=== PATIENT | female | born 1995 | race Two or more races ===

== ENCOUNTER 2017-04-17 08:11 | Outpatient (CLI) | payer OTHER ==
[~2017-04-17] VITALS: Ht 170.2 cm; Wt 73.6 kg
[2017-04-17 08:27] VITALS: BP 113/65
[2017-04-17] MEDS ORDERED: PREN1TAB69 PO (08:38)
== END 2017-04-17 09:33 | disposition home or self-care (01) ==
LOC: LDOP 08:11
PROVIDERS: ATTEND Obstetrics & Gynecology
DX: O42.92 Full-term premature rupture of membranes, unspecified as to length of time between rupture and onset of labor (principal); Z3A.00 Weeks of gestation of pregnancy not specified
CPT/HCPCS: 59025; 99201; G0463

== ENCOUNTER 2017-04-17 12:51 | Inpatient (IN) | payer OTHER ==
[~2017-04-17] VITALS: Ht 170.2 cm; Wt 73.6 kg
[~2017-04-17 12:51] MED LIST: PREN1TAB69 PO
[2017-04-17] MEDS ORDERED: OXYTOCIN 30U/ 0.9% NaCL 500ML 500 ML IV ONE (15:31)
[2017-04-17] MEDS ORDERED: D5%-LACTATED RINGERS 1,000 ML IV SCH (15:31)
[2017-04-17] MEDS ORDERED: FENTANYL PF 100 MCG/2ML IV PRN (16:00)
[2017-04-17] MEDS ORDERED: ONDANSETRON 2MG/ML, 2ML IVPush PRN (16:00)
[2017-04-17] MEDS ORDERED: FENTANYL PF 100 MCG/2ML IVPush PRN (16:00)
[2017-04-17] MEDS ORDERED: NEWBORN KIT ONE (16:05)
[2017-04-17] MEDS ORDERED: LIDOCAINE 1%, 20ML ONE (16:05)
[2017-04-17] MEDS ORDERED: OXYTOCIN 30U/ 0.9% NaCL 500ML 500 ML ONE ×2 (16:06→23:29)
[2017-04-17] MEDS ORDERED: MISOPROSTOL 200 MCG TABLET ONE (16:06)
[2017-04-17] MEDS ORDERED: FENTANYL PF 100 MCG/2ML ONE ×3 (16:06→23:11)
[2017-04-17 16:07] LABS: BASOPHILS # (AUTO) 0.05 x10^3/uL (0-0.1); BASOPHILS % (AUTO) 0 % (0-1); EOSINOPHILS # (AUTO) 0.02 x10^3/uL (0-0.4); EOSINOPHILS % (AUTO) 0 % (1-7); LYMPHOCYTES # (AUTO) 1.99 x10^3/uL (1-3.4); LYMPHOCYTES % (AUTO) 18 % (22-44); MD NO; MEAN CORPUSCULAR HEMOGLOBIN 32.7 pg (27.0-34.8); MEAN CORPUSCULAR HGB CONC 33.7 g/dL (32.4-35.8); MEAN CORPUSCULAR VOLUME 96.9 fL (80-100); MEAN PLATELET VOLUME 9.3 fL (7.4-10.4); MONOCYTES # (AUTO) 0.59 x10^3/uL (0.2-0.8); MONOCYTES % (AUTO) 5 % (2-9); NEUTROPHILS # (AUTO) 8.74 x10^3/uL (1.8-6.8); NEUTROPHILS % (AUTO) 77 % (42-75); PLATELET COUNT 180 x10^3/uL (130-400); RED BLOOD COUNT 4.04 x10^6/uL (3.82-5.3); RED CELL DISTRIBUTION WIDTH 13.1 % (9.6-15.2)
[2017-04-17] MEDS: LACTATED RINGERS 1,000 ML IV SCH (23:52)
[2017-04-18] MEDS: OXYTOCIN 30U/ 0.9% NaCL 500ML 500 ML IV SCH ×7 (00:09→22:52)
[2017-04-18] MEDS ORDERED: BISACODYL 10 MG SUPP PR PRN (00:30)
[2017-04-18] MEDS ORDERED: ACETAMINOPHEN 325 MG TABLET PO PRN ×2 (00:30)
[2017-04-18] MEDS ORDERED: ONDANSETRON 2MG/ML, 2ML IV PRN (00:30)
[2017-04-18] MEDS ORDERED: CALCIUM CARBONATE 500 MG TAB.CHEW PO PRN (00:30)
[2017-04-18] MEDS ORDERED: MISOPROSTOL 200 MCG TABLET PR PRN (00:30)
[2017-04-18] MEDS: LACTATED RINGERS 1,000 ML IV SCH (02:38)
[2017-04-18] MEDS ORDERED: HYDROcodone/APAP 5/325 TABLET ONE (02:54)
[2017-04-18] MEDS: HYDROcodone/APAP 5/325 TABLET PO PRN ×4 (02:55→19:25)
[2017-04-18 03:10] VITALS: BP 112/71
[2017-04-18 08:09] LABS: BASOPHILS # (AUTO) 0.03 x10^3/uL (0-0.1); BASOPHILS % (AUTO) 0 % (0-1); EOSINOPHILS % (AUTO) 0 % (1-7); LYMPHOCYTES # (AUTO) 1.25 x10^3/uL (1-3.4); LYMPHOCYTES % (AUTO) 10 % (22-44); MD NO; MEAN CORPUSCULAR HEMOGLOBIN 32.8 pg (27.0-34.8); MEAN CORPUSCULAR HGB CONC 33.9 g/dL (32.4-35.8); MEAN CORPUSCULAR VOLUME 96.7 fL (80-100); MEAN PLATELET VOLUME 9.5 fL (7.4-10.4); MONOCYTES # (AUTO) 0.72 x10^3/uL (0.2-0.8); MONOCYTES % (AUTO) 6 % (2-9); NEUTROPHILS # (AUTO) 10.46 x10^3/uL (1.8-6.8); NEUTROPHILS % (AUTO) 84 % (42-75); PLATELET COUNT 152 x10^3/uL (130-400); RED CELL DISTRIBUTION WIDTH 13.1 % (9.6-15.2)
[2017-04-18] MEDS: DOCUSATE 100 MG CAPSULE PO PRN ×2 (08:49→19:24)
[2017-04-18] MEDS: PRENATAL VIT/IRON/FA 1 EACH TABLET PO SCH (08:49)
[2017-04-18 08:55] VITALS: BP 113/71
[2017-04-18 12:35] VITALS: BP 111/69
[2017-04-18] MEDS: IBUPROFEN 600 MG TABLET PO PRN (19:24)
[2017-04-18 19:28] VITALS: BP 112/72
[2017-04-18] MEDS ORDERED: DIPH,PERTUSS(ACELL),TET VAC/PF NC IM-VACC ONE (20:45)
[2017-04-19 07:05] VITALS: BP 105/68
[2017-04-19] MEDS ORDERED: IBUP-1222 PO (07:45)
[2017-04-19] MEDS ORDERED: HYDR-3240 PO (07:46)
[2017-04-19] MEDS ORDERED: DOCU-131 PO (07:47)
[2017-04-19] MEDS: DOCUSATE 100 MG CAPSULE PO PRN (10:56)
[2017-04-19] MEDS: IBUPROFEN 600 MG TABLET PO PRN (10:56)
[2017-04-19] MEDS: PRENATAL VIT/IRON/FA 1 EACH TABLET PO SCH (10:56)
== END 2017-04-19 14:54 | disposition home or self-care (01) | DRG 775 ==
LOC: LDOP 12:51 → LDIP 15:31 → 2NW 04-18 03:00
PROVIDERS: ADMIT Obstetrics & Gynecology; ATTEND Obstetrics & Gynecology
PROC: 10E0XZZ Delivery of Products of Conception, External Approach (ICD-10-PCS; principal; 2017-04-17)
PROC: 0HQ9XZZ Repair Perineum Skin, External Approach (ICD-10-PCS; 2017-04-17)
PROC: 10907ZC Drainage of Amniotic Fluid, Therapeutic from Products of Conception, Via Natural or Artificial Opening (ICD-10-PCS; 2017-04-17)
PROC: 0UQMXZZ Repair Vulva, External Approach (ICD-10-PCS; 2017-04-17)
DX: O69.81X0 Labor and delivery complicated by cord around neck, without compression, not applicable or unspecified (principal); O70.0 First degree perineal laceration during delivery; Z37.0 Single live birth; Z3A.39 39 weeks gestation of pregnancy; O71.82 Other specified trauma to perineum and vulva
CPT/HCPCS: 36415; 85025; 86850; 86900; 90715; J3010; J2590; J7120